=== PATIENT | female | born 1970 | race Caucasian/White ===

== ENCOUNTER 2022-07-30 12:09 | Outpatient (CLI) | payer OTHER, SELFPAY ==
--- NOTE | ~2022-07-30 | CT_ITS ---
EXAMINATION: CT abdomen pelvis wo con DATE: 07/30/2022 12:30 INDICATION: Hernia TECHNIQUE: Computed tomography (CT) of the abdomen and pelvis was performed without intravenous contr ast. The dose-length product (DLP) was 602.64 mGy-cm. Automated exposure control and iterative recons truction technique were employed. COMPARISON: None FINDINGS: The lung bases are clear. The heart size is normal. The liver, spleen, pancreas, gallbladde r, and adrenal glands are normal. The kidneys are unremarkable. There is calcified atherosclerosis of the aorta and many of the other arteries. No pathologically enlarged abdominal or pelvic lymph nodes are identified. There is no free intraperitoneal gas or evidence of bowel obstruction. There are bow el surgical anastomoses in the terminal ileum and sigmoid colon. There is moderate lumbar spondylosis at L5-S1. There is a tiny fat-containing supraumbilical ventral hernia to the left of midline with a 9 mm neck. IMPRESSION: 1. Tiny fat-containing supraumbilical hernia. Reviewed, dictated and finalized at location A.
== END 2022-07-30 12:10 | disposition home or self-care (01) ==
PROVIDERS: PCP Family Medicine; Visit Provider Surgery
DX: K42.9 Umbilical hernia without obstruction or gangrene (principal)
CPT/HCPCS: 74176

== ENCOUNTER 2022-08-30 08:39 | Outpatient (CLI) | payer OTHER, SELFPAY ==
--- NOTE | 2022-08-30 09:00 | ECG_ITS ---
Measurements Intervals [place] Rate: 79 P: 76 NC: 156 QRS: 39 QRSD: 80 T: 51 QT: 339 QTc: 390 Interpretive Statements SINUS RHYTHM POSSIBLE LEFT ATRIAL ENLARGEMENT DELAYED PRECORDIAL R/S TRANSITION BASELINE ARTIFACT- I, II, III, AVR, AVL, AVF BORDERLINE ECG NO PREVIOUS ECG AVAILABLE FOR COMPARISON Electronically Signed On 08-30-2022 12:23:37 DB2 DBA by Natanael Cespedes D.O.
== END 2022-08-30 08:40 | disposition home or self-care (01) ==
LOC: ANHSURGERY 08:43
PROVIDERS: PCP Family Medicine; Visit Provider Surgery
DX: K43.2 Incisional hernia without obstruction or gangrene (principal); I10 Essential (primary) hypertension; Z01.818 Encounter for other preprocedural examination; R94.31 Abnormal electrocardiogram [ECG] [EKG]
CPT/HCPCS: 36415; 86850; 86900; 86901; 93005

== ENCOUNTER 2022-08-30 08:48 | Outpatient (CLI) | payer OTHER, SELFPAY ==
[2022-08-30 10:10] LABS: Anion Gap 10 mmol/L (8-16); Blood Urea Nitrogen 9 mg/dL (7-17); Calcium 9.9 mg/dL (8.4-10.2); Carbon Dioxide 32 mmol/L (22-30); Chloride 98 mmol/L (98-107); Cholesterol 265 mg/dL (0-200); Estimated Glomerular Filt Rate > 60; Glucose 113 mg/dL (65-110); HDL Direct 48 mg/dL; Potassium 4.9 mmol/L (3.4-5.0); Sodium 140 mmol/L (137-145); Triglycerides 211 mg/dL (<150)
[2022-08-30 10:19] LABS: LDL Cholesterol Direct 167 mg/dL
== END 2022-08-30 08:49 | disposition home or self-care (01) ==
LOC: ANHLAB 08:49
PROVIDERS: PCP Family Medicine; Visit Provider Nurse Practitioner Family
DX: K46.9 Unspecified abdominal hernia without obstruction or gangrene (principal); Z98.890 Other specified postprocedural states; I10 Essential (primary) hypertension; E55.9 Vitamin D deficiency, unspecified; E03.9 Hypothyroidism, unspecified
CPT/HCPCS: 36415; 80048; 80061; 82306; 84436; 84443; 86850; 86900; 86901; 93005

== ENCOUNTER 2022-09-09 01:16 | Day surgery (SDC) | payer OTHER, SELFPAY ==
[2022-08-27 11:07] VITALS: BMI 28.3
--- NOTE | 2022-08-27 11:15 | PC.NURSE ---
Report to the Outpatient Waiting Room, entrance under the green pavilion located off [facility], at time 12:00 on date 09/09/22. Planned Procedure Time: 2:00. Time changes happen often and if your time is changed the preop area will call you the afternoon before. - You and your visitor will be asked to self-screen and do not enter if you have any COVID symptoms. - We encourage only one visitor and NO visitors under age 16 are allowed at this time. Your visitor will receive communication by the phone number that is given day of service. - The patient visitor is requested to social distance or may leave the building when not with patient due to restrictions. - A mask is OPTIONAL within the hospital. Patients may have clear liquids (water, carbonated beverages, clear teas, apple juice) until 3 hours prior to surgery (11:00) with a maximum of 20 ounces. - No food from midnight until time of surgery Take the following medications with a SIP of water the morning of surgery: BUPROPION, METOPROLOL, SYNTHROID Medications to discontinue per physician: N/A Date to take last dose: N/A Please no make-up, nail sami, hairspray, perfume, deodorant, or body powder the day of surgery. No jewelry (including any body piercings) or valuables the day of surgery, leave them at home. Please take a shower or bath the night before, or the morning of, surgery with an antibacterial soap (HIBICLENS). Wear comfortable, loose fitting clothing. - Jewelry must be removed prior to entering the operating room. Rings and piercings that are not removed may be cut off. - The hospital will not accept responsibility for valuables. - Please leave all valuables, including medications, at home the day of surgery. If you are going home after surgery, a licensed electric truck driver must drive you home. - NO public transportation without another adult. - We recommend that an adult stay with you for 24 hours following discharge. - We also recommend that you do not drive, make important decision, drink alcoholic beverages, or take any drugs that were not prescribed by your health care provider for at least 24 hours after your discharge time. Follow any additional instructions given to you from your surgeon. If you or anyone in your household have experienced Covid symptoms in the past week, please notify your surgeon or the nurse liaison at the phone number below for possible testing. Telephone instructions given to GEORGIE SURESH and asked if any additional questions and then verbalized understanding. Patient advised to call surgeon office or pre surgery nurse liaison [phone] if any additional questions.
[2022-09-09] VITALS (7 sets, daily range): BP systolic 138–150; BP diastolic 61–79; PULSE 63–95; RESP 10–18; TEMP 36.6–36.9; O2SAT 95–100
--- NOTE | 2022-09-09 07:29 | PM.IMHP ---
H&P: HPI History of Present Illness Date/Time: 09/09/22 07:29 Chief Complaint: incisional hernia Narrative: Pt is a 52 y/o F presenting for evaluation of periumbilical bulging.? Pt reports bulge has been present for at least last 6 mos and seems to be slowly enlarging.? Pt reports some mild pressure/discomfort at the area.? Pt denies any obstructive s/s.? Pt has had multiple abd surgeries including sigmoidectomy and ileostomy, subsequent reversal, multiple C sxn. CT scan c/w supraumbilical incisional hernia. Review of Systems Review of Systems: All systems reviewed & are unremarkable except as noted in HPI and below PMFSH Past Medical History Medical History Adult BMI 31.0-31.9 kg/sq m BMI 30.0-30.9,adult BMI 32.0-32.9,adult BMI greater than 30 Dietary counseling and surveillance (01/30/17) Encounter for general adult medical examination without abnormal findings Encounter for screening for lipoid disorders Essential (primary) hypertension Hirsutism Hypercholesteremia Impaired fasting glucose Postablative hypothyroidism Surgical History Surgical History H/O eye surgery H/O foot surgery History of delivery x3 History of colonoscopy Hx of ileostomy S/P laparoscopic-assisted sigmoidectomy S/P tonsillectomy Family History Family History Mother Pulmonary embolism Sibling Acute myocardial infarction Lymphoma Sibling Diabetes mellitus Heart disease Father Diabetes mellitus Heart disease Other Hypertension Social History Social History Smoking packs per day: 1 Smoking cigarettes per day: 20.0 Years smoked: 35 Smoking pack-years: 35.00 Smoking status: Current every day smoker Tobacco type: cigarettes Second hand tobacco smoke exposure: No Alcohol intake: current Drinks per week: 3 Substance use: never Substance use type: does not use Living arrangements: with family Additional occupation/education comments: Self employed Gender identity (if verbalized by the patient): Female Spiritual care concerns: No Meds Home Medications and Allergies Home Medications Medication Instructions Recorded Confirmed Type Synthroid 100 mcg tablet 100 mcg PO DAILY #90 tabs 09/24/21 08/27/22 Rx (levothyroxine) spironolactone 50 mg tablet 50 mg PO DAILY #90 tabs 03/12/22 08/27/22 Rx bupropion HCl 150 mg 24 hr tablet, 150 mg PO QAM #60 tabs 04/07/22 08/27/22 Rx extended release (Wellbutrin XL) metoprolol succinate 100 mg 100 mg PO DAILY #90 tabs 09/06/22 Rx tablet,extended release 24 hr (Toprol XL) Allergies Allergy/AdvReac Type Severity Reaction Status Date / Time Influenza Virus Vaccines Allergy Unknown Swelling Verified 08/27/22 11:06 amoxicillin AdvReac Unknown Itching Verified 08/27/22 11:06 Exam Const: General: cooperative, comfortable, no acute distress and obese Resp: Auscultation: clear to auscultation bilaterally Cardio: Rate: regular rate Rhythm: regular rhythm GI: Inspection: normal to inspection, distended and incision GI Palp: Yes abdominal tenderness, Yes Soft to palpation, Yes Tenderness to palpation present (GI), No Guarding due to palpation present (GI), No Rigid due to palpation and Yes Hernia present Assessment and Plan Assessment and plan (1) Incisional hernia: Code(s): K43.2 - Incisional hernia without obstruction or gangrene Status: Acute Assessment and Plan: will setup for robotic assisted repair c mesh
--- NOTE | 2022-09-09 07:31 | WPDHPUPDATE1 ---
History and Physical Update Update Date/Time: 09/09/22 07:31 History and Physical has been reviewed, including an updated exam of the patient. There are NO changes in the patient's condition. Risks, benefits, and alternatives have been discussed and questions answered. Patient agrees to proceed with procedure.
[2022-09-09] MEDS: LACTATED RINGERS 1,000 ML 30 ML IV CONT ×2 (08:02→12:20)
[2022-09-09] MEDS: ACETAMINOPHEN 500 MG TABLET 1000 MG PO (08:02)
[2022-09-09] MEDS: KETOROLAC 15 MG/ML VIAL (*BKC) IV PUSH (08:02)
--- NOTE | 2022-09-09 08:16 | WPDANESEPPF ---
Anes - Initial Pre Proc Eval Procedure: Operation Date: 09/09/22 09:30 Proposed Procedures p Robotic Assisted Incisional Hernia Repair with Mesh - Binta Lawson MD Date/Time: 09/09/22 08:16 Surgeon: Binta Lawson MD Pre Op Diagnosis: incisonal Hernia Patient Data Age: 52 Gender: F Height: 1.6 m Weight: 73.75 kg Allergies Allergy/AdvReac Type Severity Reaction Status Date / Time Influenza Virus Vaccines Allergy Unknown Swelling Verified 09/09/22 08:12 amoxicillin AdvReac Unknown Itching Verified 09/09/22 08:12 Home Medications Medication Instructions Recorded Confirmed Type Synthroid 100 mcg tablet 100 mcg PO DAILY #90 tabs 09/24/21 09/09/22 Rx (levothyroxine) spironolactone 50 mg tablet 50 mg PO DAILY #90 tabs 03/12/22 09/09/22 Rx bupropion HCl 150 mg 24 hr tablet, 150 mg PO QAM #60 tabs 04/07/22 09/09/22 Rx extended release (Wellbutrin XL) metoprolol succinate 100 mg 100 mg PO DAILY #90 tabs 09/06/22 09/09/22 Rx tablet,extended release 24 hr (Toprol XL) Patient hx anesthesia problems: none Family hx anesthesia problems: none Results Review: All pre-operative results and documents have been reviewed as part of the pre-operative evaluation. [facility] Past Medical History Medical History Adult BMI 31.0-31.9 kg/sq m BMI 30.0-30.9,adult BMI 32.0-32.9,adult BMI greater than 30 Dietary counseling and surveillance (01/30/17) Encounter for general adult medical examination without abnormal findings Encounter for screening for lipoid disorders Essential (primary) hypertension Hirsutism Hypercholesteremia Impaired fasting glucose Postablative hypothyroidism Surgical History Surgical History H/O eye surgery H/O foot surgery History of delivery x3 History of colonoscopy Hx of ileostomy S/P laparoscopic-assisted sigmoidectomy S/P tonsillectomy Family History Family History Mother Pulmonary embolism Sibling Acute myocardial infarction Lymphoma Sibling Diabetes mellitus Heart disease Father Diabetes mellitus Heart disease Other Hypertension Social History Social History Smoking packs per day: 1 Smoking cigarettes per day: 20.0 Years smoked: 35 Smoking pack-years: 35.00 Smoking status: Current every day smoker Tobacco type: cigarettes Second hand tobacco smoke exposure: No Alcohol intake: current Drinks per week: 3 Substance use: never Substance use type: does not use Living arrangements: with family Additional occupation/education comments: Self employed Gender identity (if verbalized by the patient): Female Spiritual care concerns: No Anes - Eval Final PreProcedure Day of Procedure 09/09/22 08:16 Patient weight: overweight Heart: regular rate and rhythm Lungs: decreased breath sounds Airway: Mallampati scale class II Neurological: alert and oriented Last oral intake: >/= 8 hours ASA classification: III Emergent: no Anesthetic plan: proceed Anesthesia type and monitoring: general ETT and standard monitoring Results Review: All pre-operative results and documents have been reviewed as part of the pre-operative evaluation. Informed Consent: The patient's anesthetic plan and its attendant risks and benefits were discussed with the patient/family/POA. Questions were solicited and answers provided to the satisfaction of the patient/family/POA.
[2022-09-09] MEDS: ceFAZolin 2 GM/D5W 50 ML 2 GM/50 ML BAG IVPB (10:03)
[2022-09-09] MEDS: BUPIVACAINE/EPINEPHRINE 0.25% 50 ML VIAL 30 ML INFILTRATE (10:44)
--- NOTE | 2022-09-09 12:10 | W.PM.PROC2 ---
Procedure Note - Detailed Date of Procedure 09/09/22 Pre-op Diagnosis incisional hernia Post-op Diagnosis Same Procedure Performed Robotic assisted repair incisional hernia x 3 with mesh Surgeon Binta Lawson MD Anesthesia General Indications 52-year-old female presenting with incisional hernia Findings periumbilical incisional hernia x 3 Description of Procedure The patient was taken the operating room placed in the supine position. After adequate induction of general anesthesia, the patient was prepped and draped in normal sterile fashion. A time-out was then done to verify the patient's identity as well as the procedure being performed. I began by making a 5 mm incision in the left upper quadrant. Through this, a Veress needle was placed into the peritoneal cavity and CO2 gas was insufflated. After adequate pneumoperitoneum was achieved, a 5 mm trocar was placed through this incision. I then placed the laparoscope through this trocar site and under direct visualization I placed a 8 mm port in the left mid abdomen as well as an additional 8 mm port in the left lower abdomen. I then moved the camera to the lower port and replaced the 5 mm port with a 12 mm airport. The robot was then docked to the 3 port sites. I then went to the robotic console. I began by identifying the hernia. A moderate-sized incarcerated hernia was noted in the supraumbilical region. Using graspers, I was able to reduce this hernia. Two additional smaller hernias were noted in the periumbilical area. These were also reduced. The hernias was noted to contain some preperitoneal fat and omentum. Once reduced, I also reduced and dissected out the hernia sacs. I then closed all defects with 0 strata fix suture. I then placed a 6x[address] mesh into the abdominal cavity. The positional stitch was placed in the middle of the mesh and brought up centering the mesh over the defect. Once this was done, I used 2 0 V lock suture x 3 to circumferentially suture the mesh to the abdominal. Once the mesh was completely sutured in, I was happy with our tension-free repair. The mesh was noted to have good overlap of the defect. I then removed the positioning device. At this point, the robot was undocked and all ports were removed. I then closed the 12 mm port site with an 0 Vicryl [id number] suture at the fascial level. All port sites were then closed with 4 O Monocryl subcuticular suture. The patient tolerated the procedure well, is extubated in the operating room postoperative, OB transferred to the recovery room in stable condition. Implants 6x[address] mesh Estimated Blood Loss 10 Drains No Packing No Pathology None sent Complications No immediate complications Condition Stable Disposition PACU [facility] Billing Surgery - Charge Forward: Surgery Billing
[2022-09-09] MEDS: oxyCODONE HCL (*CRX) 5 MG TAB IR PO (13:42)
== END 2022-09-09 14:06 | disposition home or self-care (01) ==
PROVIDERS: PCP Family Medicine; Visit Provider Surgery
PROC: (CPT 49654; principal; 2022-09-09 09:30)
DX: K43.2 Incisional hernia without obstruction or gangrene (principal); I10 Essential (primary) hypertension; E78.00 Pure hypercholesterolemia, unspecified; E89.0 Postprocedural hypothyroidism; Z90.49 Acquired absence of other specified parts of digestive tract; F17.210 Nicotine dependence, cigarettes, uncomplicated
CPT/HCPCS: 49654; S2900; A9270; C1781; J0690; J1100; J1885; J2250; J2370; J2405; J2704; J3010; J7120

== ENCOUNTER 2024-08-24 09:02 | Outpatient (CLI) | payer BC, SELFPAY ==
--- NOTE | ~2024-08-24 | XR_ITS ---
XR hip LT 2V w AP pelvis Ordering provider: Tawnya Cerrato, PAC History: . M25.552 - Pain in left hip X 2+ MONTHS NKI NO SURGERY . Comparison: None. FINDINGS: BONES: No acute fracture or dislocation. Small bony fragment seen near to the greater trochanter most likely old fracture or nonunited apophysis. Tendinous calcification is also possible. HIP JOINT SPACES: Mild osteoarthritic changes. SACROILIAC JOINT SPACES/LUMBAR SPINE: The sacroiliac joint spaces are normal. Mild degenerative osborn es of the visualized lower lumbar spine. PUBIC SYMPHYSIS: Normal. SOFT TISSUES: Normal. IMPRESSION: No acute osseous abnormality pelvis and left hip. Reviewed, dictated and finalized at location A. A SALES REPRESENTATIVE
== END 2024-08-24 09:03 | disposition home or self-care (01) ==
LOC: ANHIMG 09:04
PROVIDERS: PCP Family Medicine; Visit Provider Physician Assistant Medical
DX: M25.552 Pain in left hip (principal); G89.29 Other chronic pain
CPT/HCPCS: 73502